=== PATIENT | female | born 1965 | race Caucasian/White ===

== ENCOUNTER → 2016-10-08 | Outpatient (CLI) | payer BC ==
[~2016-10-08] MED LIST: AMX875 PO; B-COTAB53 PO; CALC1TAB25 PO; CETI10TA10 PO; IBUP-103 PO; MISCCAP80 PO; MOME6000 NAE; MONT1TAB3 PO; MULT-506 PO; PRLSR20 PO; ZINC30TA3 PO
--- NOTE | 2016-10-08 17:07 | MAMMOGRAPHY REPORT ---
UNILATERAL RIGHT DIGITAL DIAGNOSTIC MAMMOGRAM TOMOSYNTHESIS: 10/08/2016 CLINICAL HISTORY: Callback from screening mammogram for possible right breast architectural distorti on. TECHNIQUE: Breast tomosynthesis in addition to standard 2D mammography was performed. Spot osito mckenzie right CC and MLO 2-D and tomosynthesis images were obtained. COMPARISON: Comparison is made to exams dated: 09/29/2016 mammogram, 09/28/2015 mammogram, 10/10/2013 mammogram, 09/27/2014 mammogram, 08/28/2011 mammogram, and 09/23/2012 mammogram - [facility]. BREAST COMPOSITION: The tissue of the right breast is heterogeneously dense, which may obscure smal l masses. FINDINGS: The previously described area of questionable architectural distortion seen within the rig ht medial breast on the cc view does not persist on the additional spot compression views, with appe arance of this region similar to multiple prior exams including the 2010 exam. No suspicious mass o r area of architectural distortion is noted on the tomosynthesis images. Findings are benign and fe lt to represent normal fibroglandular tissue. IMPRESSION: ACR BI-RADS CATEGORY 2: BENIGN The questionable architectural distortion in the right medial breast does not persist on the additio nal views. Findings are benign and most compatible with normal fibroglandular tissue. There is no mammographic evidence of malignancy. A 1 year screening mammogram is recommended. The patient has b een verbally notified of the results. Approximately 10% of breast cancers are not detected with mammography. A negative mammographic repor t should not delay biopsy if a clinically suggestive mass is present. Divine Gregorio M.D. ah/:10/08/2016 14:19:43 Cocoa Room Operator: Jaimie Lozano, [facility] letter sent: Normal /2 BI-RADS Code: ACR BI-RADS Category 2: Benign
== END | disposition home or self-care (01) ==
LOC: C.MAMM 13:36
PROVIDERS: ATTEND Obstetrics & Gynecology
DX: N64.89 Other specified disorders of breast (principal)

== ENCOUNTER → 2017-02-06 | Outpatient (CLI) | payer BC ==
[2017-02-06 10:11] LABS: PREG INTERNAL NEGATIVE QC NEG CLEAR BACKGROUND; PREG INTERNAL POSITIVE QC POS CONTROL LINE
== END | disposition home or self-care (01) ==
LOC: C.LAB1850 08:32
PROVIDERS: ATTEND Physician Assistant
DX: N93.9 Abnormal uterine and vaginal bleeding, unspecified (principal)

== ENCOUNTER → 2017-02-10 | Day surgery (SDC) | payer BC ==
[2017-02-03 08:37] VITALS: Ht 163.8 cm; Wt 59.1 kg
[~2017-02-10] VITALS: Ht 163.8 cm; Wt 59.1 kg
[~2017-02-10] MED LIST changes: +PROPOFOL IV EMULSION 10 MG/ML 20 ML VIAL IV ONE; +SODIUM CHLORIDE 0.9% 500ML 500 ML IV ONE
--- NOTE | 2017-02-10 08:41 | Endo History and Physical ---
History & Physical Date of Service: February 10, 2017. Chief Complaint: Colon screening Referring Physician: Dr. Crews History of Present Illness 51 yo CF who presents for screening colonoscopy. Past Surgical History Hx Cardiac Surgery: No Hx Internal Defibrillator: No Hx Pacemaker: No Hx Abdominal Surgery: No Hx of Implantable Prosthesis: No Hx Post-Op Nausea and Vomiting: No Hx Cancer Surgery: No Hx Thoracic Surgery: No Hx Orthopedic: No Hx Urinary Tract Surgery: No Family History Polyp Social History Smoking Status: Never Smoker Hx Substance Use: No Hx Alcohol Use: Yes (SOCIAL/OCCASIONAL) Allergies Coded Allergies: Sulfa Antibiotics (Verified Allergy, Unknown, RASH, 02/03/17) Current Medications Reported Home Medications Medications Dose Route/Sig Max Daily Dose Days Date Category Dose Instructions Prilosec (Omeprazole) 20 Mg Capcr 20 Mg PO QAM 02/03/17 Reported Probiotic (Probiotic Product) 1 Cap Cap 1 Cap PO QPM 02/03/17 Reported Calcium Magnesium 750 (Calcium W/ Magnesium) 1 Tab Tab 1 Tab PO HS 02/03/17 Reported Zinc (Zinc Gluconate) 30 Mg Tab 1 Tab PO QPM 02/03/17 Reported B Complex (B-Complex W/ Folic Acid) 1 Tab Tab 1 Tab PO QPM 02/03/17 Reported Multivitamin (Multivitamins) Tab 1 Tab PO QAM 02/03/17 Reported Advil (Ibuprofen) 200 Mg Tab 400-600 Mg PO Q6H PRN 02/03/17 Reported Mometasone Furoate (Mometasone Furoate (Nasal)) 50 Mcg/Act Spr 2 [place] QAM 02/03/17 Reported Amoxicillin 875 Mg Tab 1 Tab PO BID 02/03/17 Reported WILL BE COMPLETED 02-09-17 Zyrtec (Cetirizine Hcl) 10 Mg Tab 10 Mg PO QPM 02/03/17 Reported Singulair (Montelukast Sodium) 10 Mg Tab 10 Mg PO QAM 02/03/17 Reported Vital Signs Weight (Kilograms): 59.09 Height (Feet): 5 Height (Inches): 4.5 Date Time Temp Pulse Resp B/P Pulse Ox O2 Delivery O2 Flow Rate FiO2 02/10/17 08:18 37.1 110 20 142/82 100 Room Air Physical Exam General Appearance: WD/WN, no apparent distress Respiratory/Chest: Auscultation: breath sounds normal Cardiovascular: Heart Auscultation: RRR Abdomen: Bowel Sounds: normal Inspection & Palpation: soft, non-distended, no tenderness, guarding & rebound Assessment and Plan Assessment: 51 yo CF who presents for screening colonoscopy. Plan: Proceed with colonoscopy.
--- NOTE | 2017-02-10 09:10 | Discharge Instructions ---
Endoscopy Patient Instructions Date / Procedure(s) Performed February 10, 2017. Colonoscopy Allergy Information Coded Allergies: Sulfa Antibiotics (Verified Allergy, Unknown, RASH, 02/03/17) Discharge Date / Findings February 10, 2017. Diverticulosis Internal hemorrhoids Medication Instructions Stopped Medication(s): Patient was told not to take her iburofen, singulair, mvi. OK to resume all medications today as prescribed. Reported Home Medications Medications Dose Route/Sig Max Daily Dose Days Date Category Dose Instructions Prilosec (Omeprazole) 20 Mg Capcr 20 Mg PO QAM 02/03/17 Reported Probiotic (Probiotic Product) 1 Cap Cap 1 Cap PO QPM 02/03/17 Reported Calcium Magnesium 750 (Calcium W/ Magnesium) 1 Tab Tab 1 Tab PO HS 02/03/17 Reported Zinc (Zinc Gluconate) 30 Mg Tab 1 Tab PO QPM 02/03/17 Reported B Complex (B-Complex W/ Folic Acid) 1 Tab Tab 1 Tab PO QPM 02/03/17 Reported Multivitamin (Multivitamins) Tab 1 Tab PO QAM 02/03/17 Reported Advil (Ibuprofen) 200 Mg Tab 400-600 Mg PO Q6H PRN 02/03/17 Reported Mometasone Furoate (Mometasone Furoate (Nasal)) 50 Mcg/Act Spr 2 [place] QAM 02/03/17 Reported Amoxicillin 875 Mg Tab 1 Tab PO BID 02/03/17 Reported WILL BE COMPLETED 02-09-17 Zyrtec (Cetirizine Hcl) 10 Mg Tab 10 Mg PO QPM 02/03/17 Reported Singulair (Montelukast Sodium) 10 Mg Tab 10 Mg PO QAM 02/03/17 Reported Provider Instructions Activity Restrictions - No exercising or heavy lifting for 24 hours. - Do not drink alcohol the day of the procedure. - Do not drive a car or operate machinery until the day after the procedure. - Do not make any important decisions or sign important papers in 24 hours after the procedure. Following Day: - Return to full activity which may include returning to work/school. Diet Start your diet with liquids and light foods (jello, soup, juice, toast). Then eat your usual diet if not nauseated. Treatment For Common After Affects For mild abdominal pain, bloating, or excessive gas: - Rest - Eat lightly - Lie on right side Follow-Up Information Follow-up with Dr. Crews as scheduled Anesthesia Information What You Should Know You have had a procedure that required some medicine to reduce anxiety and discomfort. This treatment is called moderate sedation. After receiving the treatment, you may be sleepy, but you will be able to breathe on your own. The effects of the treatment may last for several hours. Follow these instructions along with Activity/Diet recommendations noted above: * Do NOT do anything where dizziness or clumsiness would be dangerous. * Rest quietly at home today, then you can be up and about tomorrow. * Have a responsible person stay with you the rest of today. * You may have had an I.V. today. If so, you may take the dressing off later today. Recommendations Call your doctor if: * Trouble breathing * Continuous vomiting for more than 24 hours * Temperature above 101 degrees * Severe abdominal pain or bloating * Pain not relieved by pain medicine ordered * There is increased drainage or redness from any incision * A large amount of rectal bleeding greater than 2-3 tablespoons. (If you had a polyp/s removed or have hemorrhoids, a small amount of blood - from the rectum is to be expected.) * You have any unanswered questions or concerns. IN THE EVENT OF A SERIOUS EMERGENCY, GO TO THE NEAREST EMERGENCY ROOM Your discharge instructions were prepared by provider Bentley Taylor. Patient Instructions Signature Page Akua Ojeda Patient (or Guardian) Signature/Date: I have read and understand the instructions given to me by my caregivers. Caregiver/RN/Doctor Signature/Date: The above-named patient and/or guardian has received patient instructions on this date. + Original Patient Signature Page (only) stays with chart. Please make copy for patient.
--- NOTE | 2017-02-10 09:13 | GI REPORT ---
Procedure Date: 02/10/2017 8:39 AM Procedure: Colonoscopy Indications: Screening for colorectal malignant neoplasm Medicines: Monitored Anesthesia Care Complications: No immediate complications. Estimated Blood Loss: Estimated blood loss: none. Procedure: Pre-Anesthesia Assessment: - Prior to the procedure, a History and Physical was performed, and patient medications and allergies were reviewed. The patient's tolerance of previous anesthesia was also reviewed. The risks and benefits of the procedure and the sedation options and risks were discussed with the patient. All questions were answered, and informed consent was obtained. Prior Anticoagulants: The patient has taken no previous anticoagulant or antiplatelet agents. ASA Grade Assessment: II - A patient with mild systemic disease. After reviewing the risks and benefits, the patient was deemed in satisfactory condition to undergo the procedure. After I obtained informed consent, the scope was passed under direct vision. Throughout the procedure, the patient's blood pressure, pulse, and oxygen saturations were monitored continuously. The Scope was introduced through the anus and advanced to the terminal ileum. The colonoscopy was performed without difficulty. The patient tolerated the procedure well. The quality of the bowel preparation was good. The terminal ileum, ileocecal valve, appendiceal orifice, and rectum were photographed. Findings: Multiple small-mouthed diverticula were found in the sigmoid colon. Internal hemorrhoids were found during retroflexion. The hemorrhoids were small. Impression: - Diverticulosis in the sigmoid colon. - Internal hemorrhoids. - No specimens collected. Recommendation: - Resume previous diet. - Continue present medications. - Repeat colonoscopy in 10 years for surveillance. - Return to primary care physician as previously scheduled. Bentley Taylor, 02/10/2017 9:12:36 AM This report has been signed electronically. Note Initiated On: 02/10/2017 8:39 AM I attest to the content of the Intraoperative Record and orders documented therein, exceptions below
--- NOTE | 2017-02-10 09:28 | Anesthesiology Progress Note ---
Anesthesia Post Op Note Date & Time February 10, 2017 at 09:28 Vital Signs Pain Intensity: 0 Vital Signs Past 12 Hours Date Time Temp Pulse Resp B/P Pulse Ox O2 Delivery O2 Flow Rate FiO2 02/10/17 09:22 84 20 93/52 99 Room Air 02/10/17 08:18 37.1 110 20 142/82 100 Room Air Notes Mental Status: alert / awake / arousable, participated in evaluation Pt Amnestic to Procedure: Yes Nausea / Vomiting: adequately controlled Pain: adequately controlled Airway Patency, RR, SpO2: stable & adequate BP & HR: stable & adequate Hydration State: stable & adequate Anesthetic Complications: no major complications apparent
[2017-02-10 09:53] VITALS: BP 102/62; PULSE 80; O2SAT 100
== END | disposition home or self-care (01) ==
LOC: C.GI 07:46
PROVIDERS: ATTEND Internal Medicine
DX: Z12.11 Encounter for screening for malignant neoplasm of colon (principal); K57.30 Diverticulosis of large intestine without perforation or abscess without bleeding; K64.8 Other hemorrhoids; Z88.2 Allergy status to sulfonamides; Z68.22 Body mass index [BMI] 22.0-22.9, adult; Z83.71 Family history of colonic polyps

== ENCOUNTER → 2017-03-02 | Outpatient (CLI) | payer BC ==
[~2017-03-02] MED LIST changes: -PROPOFOL IV EMULSION 10 MG/ML 20 ML VIAL IV ONE; -SODIUM CHLORIDE 0.9% 500ML 500 ML IV ONE
== END | disposition home or self-care (01) ==
LOC: C.PATHSPEC 11:18
PROVIDERS: ATTEND Obstetrics & Gynecology
DX: N93.9 Abnormal uterine and vaginal bleeding, unspecified (principal)

== ENCOUNTER → 2017-05-21 | Outpatient (CLI) | payer BC | END | disposition home or self-care (01) | LOC: C.PAPS 08:48 | PROVIDERS: ATTEND Physician Assistant | DX: Z01.419 Encounter for gynecological examination (general) (routine) without abnormal findings (principal) ==

== ENCOUNTER 2017-06-26 07:45 | Day surgery (SDC) | payer BC ==
[2017-06-16 09:05] VITALS: BMI 23.0
[~2017-06-26] VITALS: Ht 162.6 cm; Wt 62.7 kg
[~2017-06-26 07:45] MED LIST changes: -AMX875 PO; +LACTATED RINGER'S 1000ML 1,000 ML IV SCH; -PRLSR20 PO
[2017-06-26 08:23] VITALS: BP 141/75; PULSE 99; TEMP 36.9; O2SAT 100; Ht 162.6 cm; Wt 62.7 kg
[2017-06-26] MEDS ORDERED: FENTANYL CITRATE INJ 50 MCG/1 ML 2 ML VIAL ONE (08:30)
[2017-06-26] MEDS ORDERED: MIDAZOLAM HCL 1 MG/ML 2ML VIAL ONE (08:30)
[2017-06-26] MEDS ORDERED: NEOSTIGMINE METHYLSULFATE 5 MG/5 ML SYR ONE (09:04)
[2017-06-26] MEDS ORDERED: GLYCOPYRROLATE INJ 0.2 MG/ML VIAL ONE (09:04)
[2017-06-26] MEDS ORDERED: ONDANSETRON INJ 2 MG/ML 2 ML VIAL ONE ×2 (09:04→10:08)
[2017-06-26] MEDS ORDERED: ROCURONIUM BROMIDE 10 MG/ML 5 ML VIAL IV ONE (09:04)
[2017-06-26] MEDS ORDERED: METOCLOPRAMIDE HCL INJ 5 MG/ML 2 ML VIAL ONE (09:04)
[2017-06-26] MEDS ORDERED: LIDOCAINE HCL 2% 2 ML VIAL (20MG/ML) ONE ×3 (09:04→10:08)
[2017-06-26] MEDS ORDERED: PROPOFOL IV EMULSION 10 MG/ML 20 ML VIAL IV ONE (09:04)
[2017-06-26] MEDS ORDERED: DEXAMETHASONE SOD INJ 4 MG/ML VIAL ONE (09:04)
--- NOTE | 2017-06-26 09:39 | History & Physical Bridge Note ---
H&P Re-Evaluation Bridge Note: I have examined the patient, reviewed the History & Physical and in the interval since the performance of the History & Physical I have noted the following changes of clinical significance: No changes noted
[2017-06-26] MEDS ORDERED: KETOROLAC TROMETHAMINE 30 MG/ML VIAL ONE (10:10)
[2017-06-26] MEDS ORDERED: SILVER NITR/POTASSIUM NITRATE 10 APPLICATOR PACK ONE ×2 (10:19→10:21)
[2017-06-26] MEDS ORDERED: ONDANSETRON INJ 2 MG/ML 2 ML VIAL IV PRN ×2 (10:30→10:45)
[2017-06-26] MEDS ORDERED: PROMETHAZINE HCL INJ 6.25 MG in SODIUM CHLORIDE 0.9% 50ML 50 ML IV PRN (10:30)
[2017-06-26] MEDS ORDERED: ATROPINE SULFATE 0.1 MG/ML 5ML SYR IV PRN (10:30)
[2017-06-26] MEDS ORDERED: FENTANYL CITRATE INJ 50 MCG/1 ML 2 ML VIAL IV PRN (10:30)
[2017-06-26] MEDS ORDERED: EpHEDrine SULFATE INJ 50 MG/ML AMP IV PRN (10:30)
--- NOTE | 2017-06-26 10:32 | [facility] Operative Report ---
Operative Report Operative Date Jun 26, 2017. Pre-Operative Diagnosis Abnormal uterine bleeding, abnormal ultrasound findings Post-Operative Diagnosis Same as preop, endometrial polyp Procedure(s) Performed Hysteroscopy Dilation & Currettage, endometrial Polypectomy, Endometrial Ablation with CandelariaaSure Surgeon Dr. Alvares Grapple Yarder Operator Surgeon(s) none Estimated Blood Loss 0 ml Findings Uterus sounds to 8 cm with polyp emanating from the right mid body of the uterus. Additional smaller polyp noted as well. Normal tubal ostia bilaterally. Saline hysteroscopic fluid deficit 75 cc. Moderate curettings. Cervical length 3.5 cm uterine length 4.5 cm and uterine width 4.4 cm. Endometrial ablation took place at 1 minute 19 seconds. Fluids 500 Specimens A: endometrial curettings and polyp Drains none Anesthesia Gen. Complication(s) None Disposition Recovery Room / PACU Indications 52-year-old who has completed her childbearing but complains of heavy vaginal bleeding. Saline ultrasound in the office did reveal likely polyps. She desired removal of the polyps and endometrial ablation to try to control her heavy uterine bleeding. She was aware of all her treatment options. Description of Procedure The patient was taken to the operating room and identified. After adequate general anesthesia was obtained she was placed in the dorso lithotomy position and prepped and draped in the usual sterile fashion. The bladder was drained for clear yellow urine. A weighted speculum and anterior retractor used to visualize the cervix which was grasped on its anterior lip with an Allis clamp. The cervix was sequentially dilated using Hegar dilators to 21. Diagnostic hysteroscope primed with saline media was gently placed through the cervical os into the uterine cavity and the cavity was inspected with the findings as noted above. Using polyp forceps as well as a serrated curet the uterus was cleared of its contents. This was confirmed using the camera. The uterus had sounded to 8 cm and the cervical length was determined to be 3.5 cm. The NovaSure endometrial ablation device was readied. The cavity length was set to 4.5 cm. The device is placed gently into the uterine cavity and deployed. The cavity width was determined. The device passed cavity assessment and endometrial ablation took place as noted above. The device was allowed to cool and then was removed. The hysteroscope primed with saline media was replaced to evaluate the cavity which was consistent with ablation and no evidence of perforation. The instruments were then removed. There was a bleeding site on the anterior lip that was cauterized with silver nitrate for excellent hemostasis. The patient was returned to the supine position. She was awoken from her anesthesia and transported to recovery room in stable condition. All sponge lap and needle counts were correct 2. I attest to the content of the Intraoperative Record and any orders documented therein. Any exceptions are noted below.
[2017-06-26] MEDS ORDERED: SODIUM CHLORIDE 0.9% 1000ML 1,000 ML IV SCH (10:34)
--- NOTE | 2017-06-26 10:34 | Discharge Instructions ---
Discharge Instructions Date of Service Jun 26, 2017. Admission Reason for Admission: Abnormal Uterine Bleeding Discharge Discharge Diagnosis / Problem: after surgery Discharge Goals Goal(s): Routine recovery after surgery Activity Recommendations Activity Limitations: as noted below . Instructions / Follow-Up Instructions / Follow-Up ACTIVITY RECOMMENDATIONS: * Avoid tampons, douching, hot tubs, pools, and intercourse until bleeding has stopped. * May shower as usual. * No strenuous activity for 24-48 hours. After 24-48 hours, you may do anything you feel like doing (driving and sports are okay). SPECIAL CARE INSTRUCTIONS: Special Diet: * Mild nausea may occur in the immediate post-operative period. * Take clear liquids such as tea, cola or bouillon until all nausea has subsided; you may then resume your normal diet. Special Care: * Light bleeding and vaginal spotting can last from a few days to 3-4 weeks. Call your doctor if bleeding becomes heavier than the heaviest part of your period. * Check your temperature twice a day for one week. If it goes above 100.4 degrees Fahrenheit (38.0 Celsius), notify your doctor. * Call your doctor's office for an appointment for 2-4 weeks after your surgery. FOLLOW-UP VISIT: Call your doctor's office for an appointment for 2-4 weeks after your surgery. Current Hospital Diet Patient's current hospital diet: Discharge Diet Recommended Diet: Regular Diet Procedures Procedures Performed: Hysteroscopy Dilation & Currettage, endometrial Polypectomy, Endometrial Ablation with NovaSure Pending Studies Studies pending at discharge: yes List of pending studies: pathology Medical Emergencies . Who to Call and When: Medical Emergencies: If at any time you feel your situation is an emergency, please call 911 immediately. . Non-Emergent Contact Non-Emergency issues call your: Sales Engineering Manager . . "Provider Documentation" section prepared by Jacque Alvares. . VTE Core Measure Inpt VTE Proph given/why not?: Treatment not indicated
[2017-06-26] MEDS ORDERED: OXYCODONE/ACETAMINOPHEN 5-325 TAB PO PRN ×2 (10:45)
[2017-06-26] MEDS ORDERED: IBUPROFEN 600 MG TAB PO PRN (10:45)
--- NOTE | 2017-06-26 11:24 | Anesthesiology Progress Note ---
Anesthesia Post Op Note Date & Time Jun 26, 2017 at 11:23 Vital Signs Pain Intensity: 3 Vital Signs Past 12 Hours Date Time Temp Pulse Resp B/P (MAP) Pulse Ox O2 Delivery O2 Flow Rate FiO2 06/26/17 11:16 67 19 06/26/17 11:16 66 19 99 06/26/17 11:15 96/67 06/26/17 11:11 69 24 99 06/26/17 11:11 70 24 06/26/17 11:10 105/64 06/26/17 11:06 66 14 99 06/26/17 11:06 67 14 06/26/17 11:05 36.6 75 22 105/64 (72) 99 Room Air Oxymask 06/26/17 11:05 108/59 06/26/17 11:01 74 23 06/26/17 11:01 73 23 99 06/26/17 11:00 103/65 06/26/17 10:56 78 16 99 06/26/17 10:56 79 16 06/26/17 10:55 110/70 06/26/17 10:51 75 15 06/26/17 10:51 76 15 98 06/26/17 10:50 76 13 100/70 99 06/26/17 10:50 78 13 06/26/17 10:45 83 20 06/26/17 10:45 82 20 102/60 100 06/26/17 10:40 80 16 06/26/17 10:40 81 16 113/63 100 06/26/17 10:35 79 21 06/26/17 10:35 80 21 109/68 100 06/26/17 10:30 82 11 06/26/17 10:30 36.2 81 18 108/63 100 Oxymask 10 06/26/17 10:30 83 11 108/63 100 06/26/17 08:23 36.9 99 18 141/75 (97) 100 Room Air Notes Mental Status: alert / awake / arousable, participated in evaluation Pt Amnestic to Procedure: Yes Nausea / Vomiting: adequately controlled Pain: adequately controlled Airway Patency, RR, SpO2: stable & adequate BP & HR: stable & adequate Hydration State: stable & adequate Anesthetic Complications: no major complications apparent
[2017-06-26 11:25] VITALS: BP 104/64; PULSE 71; TEMP 36.7; O2SAT 100
[2017-06-26 11:55] VITALS: BP 120/68; PULSE 74; O2SAT 99
[2017-06-26 12:25] VITALS: BP 134/69; PULSE 68; TEMP 36.7; O2SAT 100
== END 2017-06-26 12:50 | disposition home or self-care (01) ==
LOC: C.ACU 07:45
PROVIDERS: ATTEND Obstetrics & Gynecology
DX: N84.0 Polyp of corpus uteri (principal); Z79.899 Other long term (current) drug therapy

== ENCOUNTER → 2017-10-13 | Outpatient (CLI) | payer BC ==
[~2017-10-13] MED LIST changes: -LACTATED RINGER'S 1000ML 1,000 ML IV SCH
--- NOTE | 2017-10-13 14:39 | MAMMOGRAPHY REPORT ---
BILATERAL DIGITAL SCREENING MAMMOGRAM TOMOSYNTHESIS WITH CAD: 10/13/2017 CLINICAL HISTORY: Routine screening. Patient has no complaints. TECHNIQUE: Breast tomosynthesis in addition to standard 2D mammography was performed. Current study was also evaluated with a Computer Aided Detection (CAD) system. COMPARISON: Comparison is made to exams dated: 10/08/2016 mammogram, 09/29/2016 mammogram, 09/28/2015 m ammogram, 09/27/2014 mammogram, 10/10/2013 mammogram, and 09/26/2013 mammogram - [facility] enter. BREAST COMPOSITION: The tissue of both breasts is heterogeneously dense, which may obscure small mas ses. FINDINGS: No suspicious masses, calcifications, or areas of architectural distortion are noted in ei ther breast. There has been no significant interval change compared to prior exams. IMPRESSION: ACR BI-RADS CATEGORY 1: NEGATIVE There is no mammographic evidence of malignancy. A 1 year screening mammogram is recommended. The pa tient will receive written notification of the results. Approximately 10% of breast cancers are not detected with mammography. A negative mammographic report should not delay biopsy if a clinically suggestive mass is present. Divine Gregorio M.D. ah/:10/13/2017 11:56:41 Sterilization Tech: Connie CHEATHAM(R)(M), [facility] letter sent: Normal 1/2 BI-RADS Code: ACR BI-RADS Category 1: Negative
== END | disposition home or self-care (01) ==
LOC: C.MAMM 09:57
PROVIDERS: ATTEND Obstetrics & Gynecology
DX: Z12.31 Encounter for screening mammogram for malignant neoplasm of breast (principal)

== ENCOUNTER → 2017-12-04 | Outpatient (CLI) | payer OTHER | END | disposition home or self-care (01) | LOC: C.LABSPEC 11:01 | PROVIDERS: ATTEND Physician Assistant | DX: L29.8 Other pruritus (principal); R10.2 Pelvic and perineal pain ==